=== PATIENT | male | born 1965 | race Caucasian/White ===

== ENCOUNTER → 2023-05-19 06:32 | Day surgery (SDC) | payer OTHER, SELFPAY | LOC: GI 06:32 | PROVIDERS: ATTENDING PHYSICIAN Internal Medicine Gastroenterology; FAMILY PHYSICIAN Family Medicine | DX: D12.3 Benign neoplasm of transverse colon (principal); K63.5 Polyp of colon; Z86.010 Personal history of colon polyps | CPT/HCPCS: 45385; 88305 ==

== ENCOUNTER 2023-11-14 06:14 | Day surgery (SDC) | payer OTHER, SELFPAY ==
[2023-11-01 10:15] VITALS: BMI 31.8
[2023-11-14 08:25] VITALS: BP 137/88
[2023-11-14] MEDS: NORMOSOL-R 1000 IV (08:42)
[2023-11-14 08:45] VITALS: BMI 31.8
[2023-11-14 12:27] VITALS: BP 97/71
[2023-11-14 12:30] VITALS: BP 99/72
[2023-11-14 12:45] VITALS: BP 112/69
[2023-11-14 13:00] VITALS: BP 101/67
== END 2023-11-14 13:25 | disposition home or self-care (01) ==
LOC: SDS 06:14
PROVIDERS: ATTENDING PHYSICIAN Otolaryngology; FAMILY PHYSICIAN Family Medicine
DX: H90.2 Conductive hearing loss, unspecified (principal); H71.92 Unspecified cholesteatoma, left ear; H72.02 Central perforation of tympanic membrane, left ear
CPT/HCPCS: 69631; 88304; 93005

== ENCOUNTER → 2024-04-30 08:24 | Outpatient (REF) | payer OTHER, SELFPAY | LOC: HWRAD 08:24 | PROVIDERS: ATTENDING PHYSICIAN Otolaryngology; FAMILY PHYSICIAN Nurse Practitioner Family | DX: H66.92 Otitis media, unspecified, left ear (principal) | CPT/HCPCS: 70480 ==

== ENCOUNTER → 2024-05-25 11:23 | Outpatient (REF) | payer OTHER, SELFPAY | LOC: MRI 3T 11:23 | PROVIDERS: ATTENDING PHYSICIAN Otolaryngology; FAMILY PHYSICIAN Nurse Practitioner Family | DX: H90.A32 Mixed conductive and sensorineural hearing loss, unilateral, left ear with restricted hearing on the contralateral side (principal); H66.92 Otitis media, unspecified, left ear | CPT/HCPCS: 70553; A9575 ==